=== PATIENT | male | born 1960 | race Two or more races ===

== ENCOUNTER 2017-11-11 15:08 | Outpatient (AMBR) | payer MEDICAID, SELFPAY ==
--- NOTE | 2017-11-11 15:33 | PT.OIERPT ---
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 He denies falls, hits or trauma. He works on and off with the R hand in the combs. Pt reports 8/10 shoulder pain on the L that increases with reaching OH, lifting objects and sleeping on the L side. PMH: thyroidism Imaging: X-rays with provider Pt goal: to get rid of the L shoulder pain in order to reach OH and work. Objective L shoulder AROM: FF 95 deg Abd 95 deg ER 55 deg HBB to L glute Strength: 4-/5 all planes with pain PROM: end-range limited by pain Special testing: Kamryn Fernandez: positive Cullen's:positive Painful arc: positive Assessment Pt presentation consistent with X-ray results of A/C joint OA and RC tendinopathy/impingement. Pt has difficulty reaching OH and impingement testing is positive. L shoulder strength is decreased and ROM limitations are in capsular pattern. Short Term and Server Developer Goals 1. Ind with HEP 2. Improved AROM to 125 deg FF, 120 deg abduction, ER to 90 deg 3. Improved strength to 4/5 in all planes of motion 4. Pt will reach OH to tall cabinets x10 Treatment Plan Pt has 5 Rx visits approved and will be scheduled 1-2x a week. 1. Manual therapy 2. Therex 3. Modalities as indicated, estim, moist heat, ice Frequency and Duration 2x a week for 6 weeks Certification Dates: 11/11/17 to 02/11/18 Office Procedures PT Procedures PT Date of Service: 11/11/17 OP PT Eval Mod Complex 30 minutes: Yes
== END 2017-12-02 23:59 | disposition home or self-care (01) ==
PROVIDERS: PCP Hospitalist; Referring Provider Hospitalist; Visit Provider Hospitalist
DX: I10 Essential (primary) hypertension (principal)
CPT/HCPCS: 97162

== ENCOUNTER 2024-04-01 07:32 | Emergency (ER) | payer MEDICARE, MEDICAID, SELFPAY ==
[2024-04-01 07:33] VITALS: BMI 34.8
[2024-04-01 07:36] VITALS: BP 141/73; PULSE 88; RESP 19; TEMP 36.9; O2SAT 98; BMI 35.2
--- NOTE | 2024-04-01 07:43 | XR_ITS ---
Examination: Shoulder,left, 3 views Technique: Shoulder AP internal rotation, AP external rotation, Y view shoulder, 3 views Exam date and time :March 24, 2024 0829 hrs. Indications: Injury to the shoulder 4 days ago, shoulder pain. Findings: No shoulder fracture or shoulder dislocation Moderate narrowing glenohumeral joint No AC joint separation Impression: No fracture or shoulder dislocation
[2024-04-01] MEDS: HYDROcodone/APAP 5/325 TABLET 1 TAB PO (07:49)
[2024-04-01] MEDS: KETOROLAC INJ 30 MG/ML VIAL IM (07:49)
--- NOTE | 2024-04-01 10:07 | PD.EDUPEX ---
Upper Extremity Injury RME/HPI General Chief Complaint: Extremity Injury, Upper Stated Complaint: LEFT SHOULDER/ARM PAIN X4DAYS Time Seen by Provider: 04/01/24 07:40 Arrival date/time: 04/01/24 07:32 64-year-old male presents to the emergency department complaint of left shoulder pain after injury patient reports that he hyperextended his left arm and since then has been having pain patient reports no shortness of breath or abdominal pain no chest pain Limitations: no limitations Related Data Previous Rx's ?Medication ?Instructions ?Recorded cyclobenzaprine 10 mg tablet 10 mg PO TID PRN muscle spasm #30 12/06/20 tabs hydrocodone 5 mg-acetaminophen 325 1 tab PO BID PRN pain #6 tabs 12/06/20 mg tablet ibuprofen 800 mg tablet 800 mg PO TID PRN pain #30 tabs 12/06/20 cyclobenzaprine 10 mg tablet 10 mg PO TID PRN muscle spasm 10 04/01/24 days #30 tab-caps hydrocodone 5 mg-acetaminophen 325 1 tab PO BID PRN pain #10 tabs 04/01/24 mg tablet ibuprofen 800 mg tablet 800 mg PO TID PRN pain #30 tabs 04/01/24 Allergies Allergy/AdvReac Type Severity Reaction Status Date / Time No Known Allergies Allergy Verified 04/01/24 07:35 Review of Systems Review of Systems Systems Reviewed: All systems reviewed, normal except as documented Constitutional Constitutional: Reports system reviewed and no additional complaints, except as documented, Denies fever(s) and Denies headache(s) Eyes Eyes: Reports system reviewed and no additional complaints, except as documented and Denies blurry vision ENT Ears, Nose, Mouth, and Throat: Reports system reviewed and no additional complaints, except as documented, Denies headache(s), Denies nasal congestion and Denies nasal discharge Cardiovascular Cardiovascular: Reports system reviewed and no additional complaints, except as documented, Denies chest pain and Denies dyspnea Respiratory Respiratory: Reports system reviewed and no additional complaints, except as documented, Denies chest congestion, Denies cough and Denies dyspnea Gastrointestinal Gastrointestinal: Reports system reviewed and no additional complaints, except as documented and Denies abdominal pain Musculoskeletal Musculoskeletal: Reports system reviewed and no additional complaints, except as documented, Reports arthralgias, Denies deformity, Denies joint swelling, Denies numbness, Reports stiffness and Denies tingling Integumentary/Breasts Skin/Breast: Reports system reviewed and no additional complaints, except as documented and Denies rash Neurologic Neurologic: Reports system reviewed and no additional complaints, except as documented, Reports as per HPI, Denies headache(s), Denies numbness and Denies tingling Past Medical History Past Medical History NEUROLOGIC: Negative Neurological Disorders or Seizures CARDIAC: Negative Cardiac Disorders or Congestive Heart Failure RESPIRATORY: Negative Chronic Obstructive Pulmonary Disease (COPD) GASTROINTESTINAL: Negative Gastrointestinal Disorders or Colorectal Cancer GENITOURINARY: Negative Genitourinary Disorders, Renal Disease or Prostate Cancer REPRODUCTIVE: Negative Testicular Cancer MUSCULOSKELETAL: Positive Musculoskeletal Disorders (LEFT SHOULDEER ROTATOR CUFF TEAR); Negative Bone Cancer ENDOCRINE: Positive Endocrine Disorders and Hyperthyroidism; Negative Diabetes Mellitus Type 1 or Diabetes Mellitus Type 2 HEMATOLOGIC: Negative Blood Disorders OTHER HISTORY: Negative Autoimmune Disease, Falls, Blood Transfusions, MRSA, Colorectal Cancer, Lung Cancer, Prostate Cancer or Testicular Cancer Family History FAMILY HISTORY: Negative Family Psychiatric Problems, Family Respiratory Disorders, Family Cardiac Disorders, Family Gastrointestinal Problems, Family Cancer, Family Surgery or Family Anesthesia Reaction Surgical History SURGICAL: Negative Vasectomy Social History SMOKING STATUS: Never smoker ED Exam General Limitations: Present no limitations General appearance: Present alert and in no apparent distress Head Head exam: Present atraumatic Eye Eye exam: Present normal appearance, PERRL and EOMI ENT ENT exam: Present normal exam, normal oropharynx and mucous membranes moist Neck Neck exam: Present normal inspection, full ROM and trachea midline Chest Chest inspection: Present normal inspection and symmetric chest wall rise Respiratory Respiratory exam: Present normal lung sounds bilaterally Cardiovascular Cardiovascular exam: Present regular rate, normal rhythm and normal heart sounds Abdominal Exam Abdominal exam: Present soft and normal bowel sounds Extremities Exam Extremities exam: Present full ROM, tenderness and normal capillary refill; Absent joint swelling Back Exam Back exam: Present normal inspection and full ROM Neurological Exam Neurological exam: Present alert, oriented X3 and CN II-XII intact Psychiatric Psychiatric exam: Present normal affect and normal mood Skin Skin exam: Present warm, dry, intact and normal color Course Quality Measures none Orders Category Date Time Status XR shoulder LT min 2V Stat Exams 04/01/24 07:43 Completed HYDROcodone*/APAP 5/325 [[place] 5/325] Med 04/01/24 07:43 Discontinued 1 tab PO X1 ONE Ketorolac Inj [Toradol Inj] Med 04/01/24 07:43 Discontinued 30 mg IM X1 ONE Vital Signs Vital signs: Vital Signs Temperature 98.5 F 04/01/24 07:36 Pulse Rate 88 04/01/24 07:36 Respiratory Rate 19 04/01/24 07:36 Blood Pressure 141/73 H 04/01/24 07:36 Pulse Oximetry (%) 98 04/01/24 07:36 Oxygen Delivery Method Room Air 04/01/24 07:36 O2 saturation 98% room air within normal limits Extremity Injury MDM Narrative MDM Narrative:: 64-year-old male presents to the emergency department complaint of left shoulder pain after injury patient reports that he hyperextended his left arm and since then has been having pain patient reports no shortness of breath or abdominal pain no chest pain On exam patient does not appear ill or toxic patient grimaces when he moves his left arm X-ray of the left shoulder obtained no acute fracture dislocation noted patient has chronic osteoarthritis Patient given pain medication Patient discharged home in no distress to follow-up with primary care doctor in the next 24 to 48 hours and for any worsening symptoms to return to the ER immediately Patient data External records reviewed:: [facility] previous records Clinical information provided by:: patient Social determinants that could affect healthcare access:: none Patient has the following chronic illnesses:: See history How is presenting disease/condition affected by chronic disease/condition?: exacerbated by Evaluation data The following diagnostics were reviewed and interpreted by me:: radiology exam(s) Lab and/or radiology exams considered but not ordered:: Radiology obtained Interpretation Summary: Reviewed by me Medications / Prescriptions Medications or Prescriptions considered but not ordered:: Given Medication administrations:: Medication Administration History Discontinued Medications Hydrocodone Bitart/Acetaminophen (Hydrocodone/Apap 5/325 Tablet) 1 tab PO X1 ONE Stop: 04/01/24 07:44 Last Admin: 04/01/24 07:49 Dose: 1 tab Documented By: CAR Ketorolac Tromethamine (Ketorolac Inj 30 Mg/Ml Vial) 30 mg IM X1 ONE Stop: 04/01/24 07:44 Last Admin: 04/01/24 07:49 Dose: 30 mg Documented By: CAR Given Consultations Consultation(s) initiated? (list below): No Diagnosis Upper Extremity Injury Differential Diagnosis: other (Shoulder pain, shoulder strain, shoulder fracture) Most likely diagnosis given after review of the tests above:: Shoulder pain Admission Indicated Admission indicated?: not indicated Admission Request Was there a request for admission?: No Disposition Plan Disposition Plan: Discharge Discharge Attestation Discharge Attestation: The patient and all family members were given an opportunity to ask questions and understood the discharge instructions. Discharge instructions specifically effects, indications for sooner follow up or return to the emergency department, and the expected course of current diagnosis. Patient condition: Stable Discharge Plan Plan Patient Disposition: HOME (Self Care) Disposition Comment: Stable Prescriptions/Referrals Prescriptions/Med Rec: New cyclobenzaprine 10 mg tablet 10 mg PO TID PRN (Reason: muscle spasm) 10 Days Qty: 30 0RF ibuprofen 800 mg tablet 800 mg PO TID PRN (Reason: pain) Qty: 30 0RF hydrocodone-acetaminophen 5-325 mg tablet 1 tab PO BID MDD 10 PRN (Reason: pain) Qty: 10 0RF No Action cyclobenzaprine 10 mg tablet 10 mg PO TID PRN (Reason: muscle spasm) Qty: 30 0RF ibuprofen 800 mg tablet 800 mg PO TID PRN (Reason: pain) Qty: 30 0RF hydrocodone-acetaminophen 5-325 mg tablet 1 tab PO BID MDD 10 PRN (Reason: pain) Qty: 6 0RF Referrals: Aakash Ridley PA-C [Primary Care Provider] - 04/02/24 Problem List Clinical Impression: Acute pain of left shoulder Patient/Caregiver Discharge Instructions Education Materials: ED Arthralgia Additional Instructions: Please follow up with your primary care doctor in the next 24-48hrs for any worsening symptoms return here immediately Print Language: Indian Stand Alone Forms: Ana Award Info., Patient Portal Info Letter AHSAN/SLOAN Supervising Physician AHSAN/SLOAN Supervising Physician: Dr. mitchell
== END 2024-04-01 10:17 | disposition home or self-care (01) ==
PROVIDERS: Emergency Provider Emergency Medicine; PCP Physician Assistant
DX: M25.512 Pain in left shoulder (principal)
CPT/HCPCS: 73030; 96372; 99283; J1885; A9270